=== PATIENT | female | born 1980 | race Caucasian/White ===

== ENCOUNTER 2021-03-06 18:02 | Emergency (ER) | payer OTHER ==
[~2021-03-06] VITALS: Ht 170.2 cm; Wt 69.4 kg
[2021-03-06] MEDS ORDERED: LISINOPRIL10 MG PO (18:16)
[2021-03-06 18:23] LABS: HEMATOCRIT 40.9 % (37.0-47.0); HEMOGLOBIN 13.8 gm/dL (12.0-15.0); MCH 30.7 pg (26.0-34.0); MCHC 33.7 g/dL (28.0-37.0); MCV 91.3 fL (80.0-100.0); PLATELET COUNT 305 thou/uL (150-400); RBC 4.48 mil/uL (4.20-5.00); RDW 13.5 % (10.5-14.5); WBC 11.9 thou/uL (4.0-11.0)
[2021-03-06 18:30] LABS: ANION GAP 13 mmol/L (7-16); BUN 5 mg/dL (7-18); CALCIUM 8.9 mg/dL (8.5-10.1); CHLORIDE 101 mmol/L (98-107); CO2 22 mmol/L (21-32); CREATININE 0.7 mg/dL (0.6-1.0); GLUCOSE 100 mg/dL (74-106); SODIUM 136 mmol/L (136-145)
[2021-03-06 18:39] LABS: TROPONIN-I <0.06 ng/mL (<0.06)
[2021-03-06 19:03] LABS: ABSOLUTE NEUTROPHILS 3.2 thou/uL (1.4-8.2); ATYPICAL LYMPHS 5 %
[2021-03-06 19:48] LABS: URINE BILIRUBIN NEGATIVE (Negative); URINE BLOOD NEGATIVE (Negative); URINE CLARITY CLEAR; URINE COLOR YELLOW; URINE GLUCOSE-RANDOM* NEGATIVE (Negative); URINE KETONES TRACE (Negative); URINE LEUKOCYTES-REFLEX NEGATIVE (Negative); URINE NITRITE-REFLEX NEGATIVE (Negative); URINE PROTEIN (DIPSTICK) NEGATIVE (Negative); URINE UROBILINOGEN 0.2 E.U./dl (0.2-1.0)
[2021-03-06] MEDS ORDERED: MOBIC7.5 MG PO (21:39)
[2021-03-06] MEDS ORDERED: VISTARIL 25 MG25 M1 PO (21:39)
[2021-03-06 22:01] VITALS: BP 100/57
--- NOTE | 2021-03-07 07:13 | EKG ---
[address] [email or web address] [address] ELECTROCARDIOGRAM REPORT Name: NIGEL SLADE Room #: [facility] MELINA Chakraborty#: [id number] Admission: 03/06/21 Attend Phys: Discharge: 03/06/21 Date of : 76 Report #: [id number] [facility] ED Test Date: 2021-03-06 Test Time: 18:07:10 Pat Name: NIGEL SLADE Department: Room: Gender: F Tower Technician: areli : 1980 Requested By: Praveen Tuttle Order Number: [id number] MD: Alex Quintanilla Measurements Intervals [place] Rate: 74 P: 55 NV: 139 QRS: 53 QRSD: 73 T: -59 QT: 355 QTc: 394 Interpretive Statements Sinus rhythm Borderline repolarization abnormality No previous ECG available for comparison Electronically Signed On 03-07-2021 7:13:29 CDT by Alex Quintanilla [email or web address] <ELECTRONICALLY SIGNED> By: Alex Quintanilla MD, [facility] 03/07/21 0713 1807 180 Alex Quintanilla MD, FACC /EPI
== END 2021-03-06 22:03 | disposition home or self-care (01) ==
LOC: ER 18:02
PROVIDERS: Nurse Practitioner
DX: R07.89 Other chest pain (principal); R06.02 Shortness of breath; R20.2 Paresthesia of skin; I10 Essential (primary) hypertension; Z98.51 Tubal ligation status; Z88.0 Allergy status to penicillin